=== PATIENT | female | born 1930 | race Caucasian/White ===

== ENCOUNTER 2016-09-01 17:25 | Emergency (ER) | payer MEDICARE ==
--- NOTE | 2016-09-01 18:44 | EDM.PDOC ---
ED HPI GENERAL MEDICAL PROBLEM - General Chief Complaint: Respiratory Problem Stated Complaint: COUGH Time Seen by Provider: 09/01/16 18:25 Source of Information: Reports: Patient, Family, Old Records History Limitations: Reports: No Limitations - History of Present Illness INITIAL COMMENTS - FREE TEXT/NARRATIVE: 86 yo female is brought in from her assisted living facility by her daughter for increasing cough since last night. Did get some relief with her albuterol at 4 pm today. No fever. Cough harsh, but non-productive. Some mild LLQ abdominal pain. No nasal sx's. Is not on home oxygen. Onset Date: 08/31/16 Duration: Hour(s): Location: Reports: Chest Quality: Reports: Other (No pain.) Severity: Moderate Improves with: Reports: Other (albuterol) Worsens with: Reports: Other (once she starts coughing, cannot stop) Context: Reports: Other (Hx of chronic lung dz.) Associated Symptoms: Reports: Cough. 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: Reports: Other (see below) (albuterol at 4 pm last) - Related Data Allergies Allergy/AdvReac Type Severity Reaction Status Date / Time amoxapine Allergy Cannot Verified 09/01/16 18:06 Remember amoxicillin Allergy Cannot Verified 09/01/16 18:06 Remember Penicillins Allergy Cannot Verified 09/01/16 18:06 Remember pregabalin [From Lyrica] Allergy Cannot Verified 09/01/16 18:06 Remember sulfamethoxazole Allergy Cannot Verified 09/01/16 18:06 [From Bactrim] Remember trimethoprim [From Bactrim] Allergy Cannot Verified 09/01/16 18:06 Remember Home Meds: Home Meds Acetaminophen [Tylenol] 650 mg PO Q6H PRN 08/12/14 [History] Aspirin [Aspirin EC] 81 mg PO QAM 08/12/14 [History] Bisacodyl [Laxative Suppository] 1 supp RECTAL DAILY PRN 08/12/14 [History] Carvedilol [Carvedilol] 3.125 mg PO BID 08/12/14 [History] Cholecalciferol (Vitamin D3) [Vitamin D] 2,000 unit PO QAM 08/12/14 [History] Gabapentin [Gabapentin] 1 tab PO TID 08/12/14 [History] Magnesium Hydroxide [Milk of Magnesia] 30 ml PO DAILY PRN 08/12/14 [History] Na Phos,M-B/Na Phos,Di-Ba [Fleet Enema] 1 applic RECTAL ASDIRECTED PRN 08/12/14 [History] Citalopram [Celexa] 20 mg PO DAILY 04/01/15 [History] Docusate Sodium 100 mg PO BID 04/01/15 [History] Lisinopril 5 mg PO DAILY 04/01/15 [History] Omeprazole 40 mg PO DAILY 04/01/15 [History] Albuterol/Ipratropium [DuoNeb 3.0-0.5 MG/3 ML] 1 ampule INH QID 05/04/16 [ History] Budesonide [Pulmicort] 0.5 mg INH BID 05/04/16 [History] Furosemide [Furosemide] 20 mg PO DAILY 05/04/16 [History] Magnesium Citrate 100 mg PO DAILY 05/04/16 [History] Polyethylene Glycol 1000 [Polyethylene Glycol] 17 g PO DAILY 05/04/16 [History] Sennosides [Senna] 1 tab PO DAILY 05/04/16 [History] guaiFENesin [Mucinex] 100 mg PO TID 05/04/16 [History] Past Medical History Other HEENT History: tooth disease Cardiovascular History: Reports: High Cholesterol, Hypertension Respiratory History: Reports: Asthma Gastrointestinal History: Reports: GERD Genitourinary History: Reports: Chronic Renal Insuffiency, Urinary Incontinence Other Genitourinary History: urinary retention, ckd Musculoskeletal History: Reports: Fracture Neurological History: Reports: CVA Other Neuro History: aneurysms Psychiatric History: Reports: Anxiety, Dementia, Depression Oncologic (Cancer) History: Reports: Breast - Past Surgical History Female Surgical History: Reports: Mastectomy Social & Family History - Tobacco Use Smoking Status *Q: Never Smoker - Caffeine Use Caffeine Use: Reports: Coffee - Alcohol Use Days Per Week of Alcohol Use: 0 - Recreational Drug Use Recreational Drug Use: No ED ROS GENERAL - Review of Systems Review Of Systems: See Below Constitutional: Denies: Fever, Chills, Malaise, Weakness, Fatigue, Diaphoresis, Decreased Appetite HEENT: Reports: No Symptoms Respiratory: Reports: Cough. Denies: Shortness of Breath, Wheezing, Pleuritic Chest Pain, Sputum, Hemoptysis Cardiovascular: Reports: No Symptoms Endocrine: Reports: No Symptoms GI/Abdominal: Reports: Abdominal Pain (only with palpation and not at all times , first noticed yesterday. ) : Reports: No Symptoms Musculoskeletal: Reports: No Symptoms Skin: Reports: No Symptoms Neurological: Reports: No Symptoms Psychiatric: Reports: No Symptoms ED EXAM, GENERAL - Physical Exam Exam: See Below Exam Limited By: No Limitations General Appearance: Alert, WD/WN, No Apparent Distress Eye Exam: Bilateral Eye: Normal Inspection Ears: Normal External Exam, Normal Canal, Hearing Grossly Normal Ear Exam: Bilateral Ear: Auricle Normal, Canal Normal Nose: Normal Inspection, Normal Mucosa, No Blood Throat/Mouth: Normal Inspection, Normal Lips, Normal Oropharynx, Normal Voice, No Airway Compromise Head: Atraumatic, Normocephalic Neck: Normal Inspection, Supple, Non-Tender Respiratory/Chest: No Respiratory Distress, No Accessory Muscle Use, Decreased Breath Sounds, Rhonchi (L lower half of the chest.) Cardiovascular: Regular Rate, Rhythm, No Edema GI/Abdominal: Normal Bowel Sounds, Soft, Non-Tender, No Distention (Female) Exam: Other (chronic urinary incontinence) Back Exam: Normal Inspection Extremities: Normal Inspection, Normal Range of Motion, Non-Tender, No Pedal Edema Neurological: Alert, Oriented, CN II-XII Intact, Normal Cognition, No Motor/ Sensory Deficits Psychiatric: Normal Affect, Normal Mood Lymphatic: No Adenopathy Course - Vital Signs Text/Narrative:: CXR-? L basilar infiltrate Zithromax 500 mg po, Robitussin AC 10 ml po Last Recorded V/S: Last Vital Signs Temp 36.7 C 09/01/16 18:12 Pulse 72 09/01/16 18:12 Resp 15 09/01/16 18:12 BP 146/72 H 09/01/16 18:12 Pulse Ox 94 L 09/01/16 18:12 - Orders/Labs/Meds Orders: Active Orders 24 hr Category Date Time Status Chest 2V [CR] Stat Exams 09/01/16 18:38 Taken Codeine/guaiFENesin [Robitussin AC] Med 09/01/16 19:27 Once 10 ml PO ONETIME ONE Labs: Laboratory Tests 09/01/16 09/01/16 Range/Units 18:51 18:51 WBC 8.2 (4.5-11.0) K/uL RBC 5.28 (3.30-5.50) M/uL Hgb 15.8 H (12.0-15.0) g/dL Hct 46.7 (36.0-48.0) % MCV 88 (80-98) fL MCH 30 (27-31) pg MCHC 34 (32-36) % Plt Count 176 (150-400) K/uL Sodium 141 (140-148) mmol/L Potassium 4.0 (3.6-5.2) mmol/L Chloride 105 (100-108) mmol/L Carbon Dioxide 28 (21-32) mmol/L Anion Gap 8.2 (5.0-14.0) mmol/L BUN 26 H (7-18) mg/dL Creatinine 1.4 H (0.6-1.0) mg/dL Est Cr Clr Drug Dosing TNP Estimated GFR (MDRD) 36 L (>60) Glucose 121 H (74-106) mg/dL Calcium 9.0 (8.5-10.1) mg/dL C-Reactive Protein 1.05 H (0.0-0.3) mg/dL Meds: Medications Discontinued Medications Generic Name Dose Route Start Last Admin Trade Name Freq PRN Reason Stop Dose Admin Azithromycin 500 mg 09/01/16 19:27 Zithromax PO 09/01/16 19:28 ONETIME ONE Departure - Departure Time of Disposition: 19:45 Disposition: Home, Self-Care 01 Condition: Fair Clinical Impression: Lung infection, Cough - Discharge Information Forms: ED Department Discharge - My Orders Last 24 Hours: My Active Orders 09/01/16 18:38 Chest 2V [CR] Stat 09/01/16 19:27 Codeine/guaiFENesin [Robitussin AC] 10 ml PO ONETIME ONE - Assessment/Plan Last 24 Hours: My Active Orders 09/01/16 18:38 Chest 2V [CR] Stat 09/01/16 19:27 Codeine/guaiFENesin [Robitussin AC] 10 ml PO ONETIME ONE
[2016-09-01] MEDS ORDERED: Codeine/guaiFENesin 100mg-10 MG/5 ML Syrup 10 ML Cup PO ONE (19:27)
[2016-09-01] MEDS ORDERED: Azithromycin 250 MG Tab PO ONE (19:27)
[2016-09-01 19:55] VITALS: BP 161/70
--- NOTE | 2016-09-03 08:33 | CR ---
Chest 2V HISTORY: cough COMPARISON: 05/04/2016 FINDINGS: Lungs appear clear and normally aerated. Cardiomediastinal silhouette is within normal limits for th e AP technique. Atherosclerotic aorta is redemonstrated. No vascular redistribution or pleural fluid can be seen. Bony structures and soft tissues are stable. IMPRESSION: No acute chest abnormality or significant interval change is identified.
== END 2016-09-01 20:25 | disposition home or self-care (01) ==
LOC: JP.ED 17:25
DX: J18.9 Pneumonia, unspecified organism (principal); E78.00 Pure hypercholesterolemia, unspecified; J45.909 Unspecified asthma, uncomplicated; I12.9 Hypertensive chronic kidney disease with stage 1 through stage 4 chronic kidney disease, or unspecified chronic kidney disease; N18.9 Chronic kidney disease, unspecified; K21.9 Gastro-esophageal reflux disease without esophagitis; F41.9 Anxiety disorder, unspecified; F32.9 Major depressive disorder, single episode, unspecified; Z88.0 Allergy status to penicillin; Z88.1 Allergy status to other antibiotic agents; Z88.8 Allergy status to other drugs, medicaments and biological substances; Z88.2 Allergy status to sulfonamides; Z79.82 Long term (current) use of aspirin; Z79.899 Other long term (current) drug therapy; Z98.890 Other specified postprocedural states
CPT/HCPCS: 36415; 71020; 80048; 85027; 86140; 99284; A9270; 99283